=== PATIENT | male | born 1950 | race Caucasian/White ===

== ENCOUNTER → 2019-09-06 | Outpatient (CLI) | payer MEDICARE ==
[~2019-09-06] MED LIST: OMNIPAQUE 350 MG/ML, 100ML BOTTLE ONE
[2019-09-06 10:43] LABS: CREATININE 1.08 mg/dL (0.7-1.3)
== END | disposition home or self-care (01) ==
LOC: RAD 09:35
PROVIDERS: ATTEND Urology
DX: C61 Malignant neoplasm of prostate (principal); M47.816 Spondylosis without myelopathy or radiculopathy, lumbar region; N40.0 Benign prostatic hyperplasia without lower urinary tract symptoms
CPT/HCPCS: 36415; 72193; 78306; 82565; A9503; Q9967

== ENCOUNTER → 2019-10-11 | Outpatient (CLI) | payer MEDICARE ==
[~2019-10-11] MED LIST changes: +CYAN50008 PO; +HYDROCHLOROTH12.5 MG PO; +LANS15CA5 PO; +LISI-170 PO; +MELA5TAB14 PO; +MELO7.5T31 PO; +MULT1TAB60 PO; -OMNIPAQUE 350 MG/ML, 100ML BOTTLE ONE; +POTA99TA3 PO; +SIMV40TA3 PO; +VIT1CAPS42 PO
== END | disposition home or self-care (01) ==
LOC: STAR 11:05
PROVIDERS: ATTEND Urology
DX: Z01.818 Encounter for other preprocedural examination (principal); C61 Malignant neoplasm of prostate
CPT/HCPCS: 93005

== ENCOUNTER 2019-10-23 10:07 | Inpatient (IN) | payer MEDICARE ==
[~2019-10-23] VITALS: Ht 182.9 cm; Wt 90.0 kg
[~2019-10-23 10:07] MED LIST changes: +SIMV40TA20 PO; -SIMV40TA3 PO
[2019-10-23 10:35] VITALS: BP 115/53
[2019-10-23] MEDS ORDERED: LACTATED RINGERS 1,000 ML IV SCH (10:38)
[2019-10-23] MEDS ORDERED: GABAPENTIN 300 MG CAPSULE PO ONE (11:00)
[2019-10-23] MEDS ORDERED: ACETAMINOPHEN 500 MG TABLET PO ONE (11:00)
[2019-10-23] MEDS ORDERED: PROPOFOL 10 MG/ML, 20ML ONE (11:22)
[2019-10-23] MEDS ORDERED: FENTANYL PF 250 MCG/5ML ONE (11:22)
[2019-10-23] MEDS ORDERED: ROCURONIUM 10MG/ML,5ML ONE ×2 (11:22)
[2019-10-23] MEDS ORDERED: MIDAZOLAM 1 MG/ML, 2ML ONE (11:22)
[2019-10-23] MEDS ORDERED: LIDOCAINE-MPF 2% ,5ML ONE (11:23)
[2019-10-23] MEDS ORDERED: CEFAZOLIN 1,000 MG ONE ×2 (11:23)
[2019-10-23] MEDS ORDERED: ONDANSETRON 2MG/ML, 2ML ONE (11:23)
[2019-10-23] MEDS ORDERED: DEXAMETHASONE 4 MG/ML, 1ML ONE ×2 (11:23)
[2019-10-23] MEDS ORDERED: THROMBIN 5,000 UNIT VIAL TP ONE (12:32)
[2019-10-23] MEDS ORDERED: BUPIVACAINE/PF-EPI 0.25% 1:200K ONE (12:32)
[2019-10-23] MEDS ORDERED: OPIUM/BELLADONNA SUPP.RECT 16.2-60 MG ONE (12:33)
[2019-10-23] MEDS ORDERED: SUGAMMADEX 200 MG/2 ML IVPush ONE (13:13)
[2019-10-23] MEDS ORDERED: FENTANYL PF 100 MCG/2ML IV PRN (13:30)
[2019-10-23] MEDS ORDERED: ONDANSETRON 2MG/ML, 2ML IV PRN ×2 (13:30→20:00)
[2019-10-23] MEDS ORDERED: LABETALOL 5MG/ML, 20ML IV PRN (13:30)
[2019-10-23] MEDS ORDERED: HYDROmorphone 2 MG/ML, 1ML IVPush PRN (13:30)
[2019-10-23] MEDS ORDERED: LORazepam 2 MG/ML, 1ML IVPush PRN (13:30)
[2019-10-23] MEDS ORDERED: MEPERIDINE/PF 25MG/ML,1ML IVPush PRN (13:30)
[2019-10-23] MEDS ORDERED: hydrALAzine 20 MG/ML, 1ML IV PRN (13:30)
[2019-10-23] MEDS ORDERED: OXYcodone 5 MG/5 ML ORAL.SOL UDC PO PRN (13:30)
[2019-10-23] MEDS ORDERED: OXYcodone 5 MG/5 ML ORAL.SOL UDC ONE (17:51)
[2019-10-23] MEDS ORDERED: FENTANYL PF 100 MCG/2ML ONE ×2 (17:54→17:55)
[2019-10-23] MEDS ORDERED: OXYcodone IR 5MG TABLET PO PRN (20:00)
[2019-10-23] MEDS: LABETALOL 5MG/ML, 20ML IVPush SCH (20:00)
[2019-10-23] MEDS ORDERED: MORPHINE SULFATE 4 MG/ML, 1ML IV PRN (20:00)
[2019-10-23] MEDS ORDERED: OPIUM/BELLADONNA SUPP.RECT 16.2-60 MG PR PRN (20:00)
[2019-10-23] MEDS: D5%-0.45NACL+KCL 20MEQ 1,000 ML IV SCH (21:05)
[2019-10-23] MEDS: ACETAMINOPHEN 500 MG TABLET PO SCH (21:08)
[2019-10-23 23:43] VITALS: BP 112/67
[2019-10-24 03:25] VITALS: BP 136/69
[2019-10-24] MEDS: ACETAMINOPHEN 500 MG TABLET PO SCH ×2 (03:46→09:00)
[2019-10-24] MEDS: LABETALOL 5MG/ML, 20ML IVPush SCH (04:00)
[2019-10-24] MEDS: D5%-0.45NACL+KCL 20MEQ 1,000 ML IV SCH (04:46)
[2019-10-24 05:59] LABS: ANION GAP 5 mmol/L (5-15); CALCIUM 8.1 mg/dL (8.5-10.1); CHLORIDE 107 mmol/L (98-107)
[2019-10-24] MEDS ORDERED: PANTOPROZOLE 40MG TABLET PO SCH (06:00)
[2019-10-24] MEDS ORDERED: LABETALOL 20 MG/4 ML IV PRN (06:00)
[2019-10-24] MEDS ORDERED: ENOXAPARIN 40 MG/0.4 ML SQ SCH (08:00)
[2019-10-24 08:55] VITALS: BP 103/66
[2019-10-24] MEDS ORDERED: LISINOPRIL 20 MG TABLET PO SCH (09:00)
[2019-10-24] MEDS ORDERED: HYDROCHLOROTHIAZIDE 12.5 MG CAPSULE PO SCH (09:00)
[2019-10-24 11:18] VITALS: BP 113/58
== END 2019-10-24 12:10 | disposition home or self-care (01) | DRG 707 ==
LOC: OUT 10:07 → 4NE 19:03 → OUT 19:39 → DCLOUNGE 10-24 12:08
PROVIDERS: ADMIT Urology; ATTEND Urology
PROC: 0VT34ZZ Resection of Bilateral Seminal Vesicles, Percutaneous Endoscopic Approach (ICD-10-PCS; 2019-10-23)
PROC: 07BC4ZZ Excision of Pelvis Lymphatic, Percutaneous Endoscopic Approach (ICD-10-PCS; 2019-10-23)
PROC: 0VTQ4ZZ Resection of Bilateral Vas Deferens, Percutaneous Endoscopic Approach (ICD-10-PCS; 2019-10-23)
PROC: 8E0W4CZ Robotic Assisted Procedure of Trunk Region, Percutaneous Endoscopic Approach (ICD-10-PCS; 2019-10-23)
PROC: 0TSC0ZZ Reposition Bladder Neck, Open Approach (ICD-10-PCS; 2019-10-23)
PROC: 0VT04ZZ Resection of Prostate, Percutaneous Endoscopic Approach (ICD-10-PCS; principal; 2019-10-23 12:30)
DX: C61 Malignant neoplasm of prostate (principal); R71.0 Precipitous drop in hematocrit; I10 Essential (primary) hypertension; E78.5 Hyperlipidemia, unspecified; M19.90 Unspecified osteoarthritis, unspecified site; F17.200 Nicotine dependence, unspecified, uncomplicated; Z88.5 Allergy status to narcotic agent; Z79.899 Other long term (current) drug therapy
CPT/HCPCS: 36415; 80048; 85014; 85018; 86850; 86900; 88305; 88309; 88331; C1729; G0378; J0690; J1100; J1650; J2250; J2405; J2704; J3010; J3480; J7120

== ENCOUNTER 2019-11-01 12:13 | Outpatient (CLI) | payer MEDICARE | END 2019-11-01 23:59 | disposition home or self-care (01) | LOC: RAD 12:13 | PROVIDERS: ATTEND Urology | DX: C61 Malignant neoplasm of prostate (principal) | CPT/HCPCS: 51600; 74430; Q9958 ==

== ENCOUNTER → 2020-05-07 | Outpatient (CLI) | payer MEDICARE ==
[~2020-05-07] MED LIST changes: +MULT-449 PO; -MULT1TAB60 PO; +OMNIPAQUE 350 MG/ML, 100ML BOTTLE ONE
== END | disposition home or self-care (01) ==
LOC: RAD 10:16
PROVIDERS: ATTEND Urology
DX: C61 Malignant neoplasm of prostate (principal)
CPT/HCPCS: 74177; 78306; A9503; Q9967

== ENCOUNTER → 2020-12-31 | Outpatient (CLI) | payer MEDICARE | END | disposition home or self-care (01) | LOC: CFH 08:48 | PROVIDERS: ATTEND Physician Assistant | DX: C61 Malignant neoplasm of prostate (principal); K42.9 Umbilical hernia without obstruction or gangrene; N28.1 Cyst of kidney, acquired | CPT/HCPCS: 74177; 82565; Q9967 ==